=== PATIENT | male | born 1935 | race Caucasian/White ===

== ENCOUNTER 2016-07-20 17:50 | Inpatient (IN) | payer MEDICARE, BC ==
[2016-07-20] MEDS ORDERED: LEVOFLOXACIN 750MG-D5W PMX 750 MG in DEXTROSE/WATER 1 150ML.BAG IVPB STA (18:27)
[2016-07-20] MEDS ORDERED: MORPHINE SULFATE 4 MG/ML SYRINGE IV STA (18:30)
--- NOTE | 2016-07-20 19:22 | ED ---
General Adult HPI - General Chief complaint: Extremity Injury, Upper Stated complaint: wrist pain Time Seen by Provider: 07/20/16 18:01 Source: patient, EMS, RN notes reviewed, old records reviewed (Outside film reports reviewed) Mode of arrival: EMS - History of Present Illness Initial comments: This patient is an 81-year-old man who comes to the emergency department after he received a phone call regarding some home x-rays that he had yesterday. The patient did have a fall on Saturday. He states that he had tripped and fallen. He does not have good balance and he does walk with a walker. The patient denies any loss of consciousness or syncope. Following the fall he was having pains to the right wrist area. He denied any other injury. He was seen by the visiting physician on Saturday and had x-rays of the right forearm and the chest which showed right wrist fracture and also probable pneumonia. The patient does acknowledge having a cough. Patient denies chest pain, dyspnea, or other symptoms. -: days(s) Location: right, upper extremity Quality: aching Consistency: constant Improves with: none Worsens with: none Associated Symptoms: cough - Related Data Home Medications Medication Instructions Recorded Confirmed Atorvastatin [Lipitor] 10 mg PO HS 12/29/15 07/20/16 Metoprolol Tartrate [Lopressor] 50 mg PO DAILY 12/29/15 07/20/16 aMILoride-HCTZ 5-50 mg [Moduretic 1 tab PO DAILY 12/29/15 07/20/16 5-50] Ibuprofen [Motrin] 200 - 400 mg PO Q6HR PRN 07/20/16 07/20/16 Oxybutynin Chloride [Ditropan] 5 mg PO BID 07/20/16 07/20/16 Vitamin B Complex 1 cap PO DAILY 07/20/16 07/20/16 Allergies Allergy/AdvReac Type Severity Reaction Status Date / Time No Known Allergies Allergy Verified 07/20/16 18:21 Review of Systems ROS Statement: Those systems with pertinent positive or pertinent negative responses have been documented in the HPI. ROS Other: All systems not noted in ROS Statement are negative. Constitutional: Reports: weakness (Chronic generalized weakness). Denies: fever , chills Respiratory: Reports: cough. Denies: dyspnea Cardiovascular: Denies: chest pain, palpitations, orthopnea, edema, syncope Gastrointestinal: Denies: abdominal pain, vomiting, diarrhea Genitourinary: Denies: dysuria Musculoskeletal: Reports: joint swelling, arthralgia, other (Right wrist pain). Denies: back pain Skin: Denies: rash Neurological: Denies: headache, weakness, numbness Past Medical History Past Medical History: Hyperlipidemia, Hypertension, Osteoarthritis (OA) Additional Past Medical History / Comment(s): bladder problems History of Any Multi-Drug Resistant Organisms: None Reported Past Surgical History: Hernia Repair, Joint Replacement Additional Past Surgical History / Comment(s): colonoscopy/polypectomy(benign), lt inguinal hernia repair, umb hernia repair, rt hip replamcent, lt rotatorr cuff Past Anesthesia/Blood Transfusion Reactions: No Reported Reaction Past Psychological History: No Psychological Hx Reported Smoking Status: Never smoker Past Alcohol Use History: None Reported Past Drug Use History: None Reported - Past Family History Father Family Medical History: Unable to Obtain Mother Family Medical History: Unable to Obtain General Exam General appearance: alert, in no apparent distress Head exam: Present: normocephalic, other (Left forehead abrasion) Eye exam: Present: normal appearance. Absent: scleral icterus, conjunctival injection Neck exam: Present: normal inspection, full ROM. Absent: tenderness Respiratory exam: Present: normal lung sounds bilaterally, rales. Absent: respiratory distress, wheezes, rhonchi Cardiovascular Exam: Present: regular rate, normal rhythm, normal heart sounds. Absent: systolic murmur, diastolic murmur, rubs, gallop GI/Abdominal exam: Present: soft. Absent: tenderness, guarding, rebound, mass Extremities exam: Present: normal inspection, tenderness (Right wrist), normal capillary refill, pedal edema. Absent: calf tenderness Back exam: Absent: vertebral tenderness Neurological exam: Present: alert Skin exam: Present: warm, dry, intact, normal color, abrasion. Absent: rash Course Vital Signs 07/20/16 07/20/16 17:58 21:59 Temperature 97.4 F L 97.9 F Pulse Rate 82 82 Respiratory 18 18 Rate Blood Pressure 134/85 152/87 O2 Sat by Pulse 93 L 93 L Oximetry Medical Decision Making - Medical Decision Making Reviewed the patient's home x-rays. IV started for labs and for antibiotic therapy. The patient's right wrist was then splinted. I discussed the case with Dr. Lan, who is covering for Dr. Rosendo moreno. Patient be admitted to have overnight antibiotic therapy and also to have orthopedic consult the morning. The patient's subsequent he did go for chest x-ray which shows just the most minimal of infiltrate versus atelectasis. Patient stable for medical floor. - Lab Data Result diagrams: 07/20/16 20:11 07/20/16 20:11 Lab Results 07/20/16 07/20/16 07/20/16 Range/Units 20:11 20:11 20:11 WBC 10.7 H (3.8-10.6) k/uL RBC 4.98 (4.30-5.90) m/uL Hgb 15.2 (13.0-17.5) gm/dL Hct 45.5 (39.0-53.0) % MCV 91.4 (80.0-100.0) fL MCH 30.6 (25.0-35.0) pg MCHC 33.5 (31.0-37.0) g/dL RDW 14.5 (11.5-15.5) % Plt Count 323 (150-450) k/uL Neutrophils % 74 % Lymphocytes % 17 % Monocytes % 6 % Eosinophils % 1 % Basophils % 0 % Neutrophils # 7.9 H (1.3-7.7) k/uL Lymphocytes # 1.8 (1.0-4.8) k/uL Monocytes # 0.6 (0-1.0) k/uL Eosinophils # 0.1 (0-0.7) k/uL Basophils # 0.0 (0-0.2) k/uL Sodium 140 (137-145) mmol/L Potassium 3.3 L (3.5-5.1) mmol/L Chloride 99 (98-107) mmol/L Carbon Dioxide 29 (22-30) mmol/L Anion Gap 12 mmol/L BUN 29 H (9-20) mg/dL Creatinine 0.90 (0.66-1.25) mg/dL Est GFR (MDRD) Af Amer >60 (>60 ml/min/1.73 sqM) Est GFR (MDRD) Non-Af >60 (>60 ml/min/1.73 sqM) Glucose 103 H (74-99) mg/dL Plasma Lactic Acid Francisco 1.4 (0.7-2.0) mmol/L Calcium 9.4 (8.4-10.2) mg/dL Disposition Clinical Impression: Pneumonia, Distal radius fracture, right Disposition: ADMITTED IP TO THIS HOSP Condition: Fair
--- NOTE | 2016-07-20 20:15 | XR ---
EXAMINATION TYPE: XR forearm RT DATE OF EXAM: 07/20/2016 8:06 PM COMPARISON: NONE HISTORY: Fall. Forearm pain TECHNIQUE: 2 views FINDINGS: There is subcutaneous edema around the forearm. There is a 5 mm nondisplaced chip fracture of the radial styloid process. The elbow joint appears intact. IMPRESSION: Soft tissue swelling. Nondisplaced radial styloid process tip fracture.
[2016-07-20 20:26] LABS: Basophils % (A) 0 %; CH 31.1; CHCM 34.2; Eosinophils # (A) 0.1 k/uL (0-0.7); Eosinophils % (A) 1 %; HCT 45.5 % (39.0-53.0); HDW 2.69; HGB 15.2 gm/dL (13.0-17.5); Luc # (Auto) 0.25; Luc % (Auto) 2; Lymphocytes # (A) 1.8 k/uL (1.0-4.8); Lymphocytes % (A) 17 %; MCH 30.6 pg (25.0-35.0); MCHC 33.5 g/dL (31.0-37.0); MCV 91.4 fL (80.0-100.0); Monocytes # (A) 0.6 k/uL (0-1.0); Monocytes % (A) 6 %; Neutrophils # (A) 7.9 k/uL (1.3-7.7); Neutrophils % (A) 74 %; RBC 4.98 m/uL (4.30-5.90); RDW 14.5 % (11.5-15.5); WBC 10.7 k/uL (3.8-10.6); WBC (Perox) 11.01
[2016-07-20 20:40] LABS: Anion Gap 12 mmol/L; Blood Urea Nitrogen 29 mg/dL (9-20); Calcium 9.4 mg/dL (8.4-10.2); Carbon Dioxide 29 mmol/L (22-30); Chloride 99 mmol/L (98-107); Glucose 103 mg/dL (74-99); Non-African American GFR(MDRD) >60 (>60 ml/min/1.73 sqM); Potassium 3.3 mmol/L (3.5-5.1); Sodium 140 mmol/L (137-145)
[2016-07-20] MEDS ORDERED: POTASSIUM CHLORIDE ER 20 MEQ TAB.ER PO STA (21:01)
[2016-07-20] MEDS ORDERED: PNEUMONIA PROTOCOL UTILIZED 1 EACH MISC PO PRN (21:02)
--- NOTE | 2016-07-20 21:19 | XR ---
EXAMINATION TYPE: XR chest 2V DATE OF EXAM: 07/20/2016 9:05 PM COMPARISON: 01/01/2016 HISTORY: Fall on right forearm TECHNIQUE: Frontal and lateral views of the chest are obtained. FINDINGS: There is no heart failure nor confluent pneumonic infiltrate. There is mild linear density at the lung bases. There are no hilar masses. Thoracic aorta is atheromatous. Bony thorax is intact. IMPRESSION: Mild subsegmental atelectasis at the lung bases. There is significant improved inspirati on compared to old exam.
[2016-07-20 22:37] VITALS: BMI 28.7
[2016-07-21] MEDS: B COMPLEX-VIT C-VIT E-ZINC 1 EACH TAB PO SCH (08:49)
[2016-07-21] MEDS: aMILoride-HCTZ 5-50 mg 1 EACH TAB PO SCH (08:49)
[2016-07-21] MEDS: OXYBUTYNIN CHLORIDE 5 MG TAB PO SCH ×2 (08:50→20:12)
[2016-07-21] MEDS: METOPROLOL TARTRATE 50 MG TAB PO SCH (08:50)
[2016-07-21] MEDS: IBUPROFEN 200 MG TAB PO PRN (09:20)
--- NOTE | 2016-07-21 10:59 | P.CNOR ---
History of Present Illness - [facility] Consult date: 07/21/16 Consult reason: fracture History of present illness: This is an 81-year-old gentleman who presented to the emergency department after sustaining a fall at home. The patient apparently had a fall on Saturday. Patient had right wrist pain at that time. He apparently had x-rays at home by visiting physician. He was notified that he had probable pneumonia and right wrist fracture and was instructed to present to the emergency department. We are consulted in regards to his right wrist. The patient is seen and evaluated at bedside today. He complains of pain at the right wrist. He otherwise denies any other musculoskeletal complaints. He denies any numbness or tingling. Currently denies any shortness of breath or chest pain. He denies any lightheadedness, nausea or vomiting. He states that he does typically walks with a walker at home. Review of Systems See HPI Past Medical History Past Medical History: Hyperlipidemia, Hypertension, Osteoarthritis (OA) Additional Past Medical History / Comment(s): bladder problems History of Any Multi-Drug Resistant Organisms: None Reported Past Surgical History: Hernia Repair, Joint Replacement Additional Past Surgical History / Comment(s): colonoscopy/polypectomy(benign), lt inguinal hernia repair, umb hernia repair, rt hip replamcent, lt rotatorr cuff Past Anesthesia/Blood Transfusion Reactions: No Reported Reaction Past Psychological History: No Psychological Hx Reported Smoking Status: Never smoker Past Alcohol Use History: None Reported Past Drug Use History: None Reported - Past Family History Father Family Medical History: Unable to Obtain Mother Family Medical History: Unable to Obtain Medications and Allergies Home Medications Medication Instructions Recorded Confirmed Type Atorvastatin [Lipitor] 10 mg PO HS 12/29/15 07/20/16 History Metoprolol Tartrate [Lopressor] 50 mg PO DAILY 12/29/15 07/20/16 History aMILoride-HCTZ 5-50 mg [Moduretic 1 tab PO DAILY 12/29/15 07/20/16 History 5-50] Ibuprofen [Motrin] 200 - 400 mg PO Q6HR PRN 07/20/16 07/20/16 History Oxybutynin Chloride [Ditropan] 5 mg PO BID 07/20/16 07/20/16 History Vitamin B Complex 1 cap PO DAILY 07/20/16 07/20/16 History Allergies Allergy/AdvReac Type Severity Reaction Status Date / Time No Known Allergies Allergy Verified 07/20/16 18:21 Physical Examination Patient does not appear in acute distress. He seen seated in bed. He is alert and answers questions appropriately. Head normal cephalic atraumatic Neck is supple. Breathing appears nonlabored He moves his left upper extremity freely without any difficulty or pain. Upon inspection of his right upper extremity there is a short arm splint intact. His fingers are free. He denies pain with motion at her shoulder and elbow. Denies pain to palpation about the elbow or forearm. He has pain to palpation at the distal radius area he is able to move all 5 fingers without difficulty or pain. He is able to make a fist. Sensation and circulatory status is intact. Secondary Exam of his lower extremities is unremarkable. He denies any hip pain with internal/external rotation. No pain with passive logroll bilaterally. Calves are soft and nontender. He denies any pain of his long bones and joints of his lower extremities today. Results X-rays performed of the patient's right forearm show nondisplaced fracture at the radial styloid process. No additional fractures were noted. - Labs Result Diagrams: 07/20/16 20:11 07/20/16 20:11 Assessment and Plan (1) Fall Status: Acute (2) Radial styloid fracture Status: Acute Plan: I reviewed the clinical and x-ray findings with the patient at bedside. Orthopedics recommends closed treatment with immobilization in a cast or splint. Patient is currently in a short arm splint that was applied by the emergency department. Patient would prefer removable cockup wrist splint. This was ordered today. Discussed this with case management as well. The patient will likely require a platform walker secondary to his fracture. Anticipate approximately 4-6 weeks in the brace. If we cannot obtain a brace today we'll replace the splint. He will follow-up in our office in 10-14 days for reevaluation x-ray.
--- NOTE | 2016-07-21 11:40 | HP ---
DATE OF ADMISSION: An 81-year-old gentleman admitted with a fracture of the right wrist, tripped and fell. Patient was evaluated by orthopedic services. The patient has a stabilizing cast to the wrist area. Patient is cleared to be discharged from orthopedic perspective. Patient is admitted to medicine service as it was thought in ER that patient has pneumonia and patient was started on levofloxacin, although patient denied any cough, runny nose, sputum production. Patient does not have any leukocytosis. No fever. Chest x-ray showed atelectasis beyond that there is no evidence of pneumonia. I will discontinue the antibiotics. Actually discharge the patient, but unfortunately we are unable to send the patient home as patient is quite weak. Physical therapy evaluated the patient and they are recommending subacute rehabilitation. So the patient may need to stay here until Saturday for subacute rehabilitation placement. REVIEW OF SYSTEMS: CONSTITUTIONAL: No fever, no malaise, no fatigue. HEENT: No recent visual problems or hearing problems. Denied any sore throat. CARDIOVASCULAR: No chest pain, orthopnea, PND, no palpitations, no syncope. PULMONARY: No shortness of breath, no cough, no hemoptysis. GASTROINTESTINAL: No diarrhea, no nausea, no vomiting, no abdominal pain. Normoactive bowel sounds. NEUROLOGICAL: No headaches, no weakness, no numbness. HEMATOLOGICAL: Denies any bleeding or petechiae. GENITOURINARY: Denies any burning micturition, frequency, or urgency. MUSCULOSKELETAL/RHEUMATOLOGICAL: As described in HPI. ENDOCRINE: Denies any polyuria or polydipsia. The rest of the 14 point review of systems is negative. Home medications include: 1. Atorvastatin. 2. Metoprolol. 3. Amiloride hydrochlorothiazide. 4. Ibuprofen. 5. Oxybutynin. 6. Vitamin B. ALLERGIES: No known drug allergies. PAST MEDICAL HISTORY: Hyperlipidemia, hypertension, osteoarthritis, hernia repair in the past. SOCIAL HISTORY: Denied any smoking, alcohol abuse or any drug abuse. Family history was not obtained and irrelevant at this point of time considering his age. PHYSICAL EXAMINATION: Temperature 97.4, pulse of 93, respiratory rate of 16, blood pressure is 146/75. saturating at 91% on room air. GENERAL: The patient is alert and oriented x3, not in any acute distress. Well developed, well nourished. HEENT: Pupils are round and equally reacting to light. EOMI. No scleral icterus. No conjunctival pallor. Normocephalic, atraumatic. No pharyngeal erythema. No thyromegaly. CARDIOVASCULAR: S1 and S2 present. No murmurs, rubs, or gallops. PULMONARY: Chest is clear to auscultation, no wheezing or crackles. ABDOMEN: Soft, nontender, nondistended, normoactive bowel sounds. No palpable organomegaly. MUSCULOSKELETAL: No joint swelling or deformity. EXTREMITIES: No cyanosis, clubbing, or pedal edema. NEUROLOGICAL: Gross neurological examination did not reveal any focal deficits. SKIN: No rashes. RIGHT FOREARM: Patient has a stabilizing cast in place. LABORATORY DATA: Nondisplaced radial styloid process tip fracture on the x-ray and chest x-ray showed some atelectasis. ASSESSMENT AND PLAN: 1. Right styloid fracture, management as per primary orthopedic services. 2. Atelectasis without any pneumonia. Patient will not need any antibiotics. Antibiotics will discontinued. 3. Hypertension. 4. Hyperlipidemia. 5. Osteoarthritis. For above-mentioned chronic medical problems, I will go ahead and continue his home medications. Patient will need DVT and GI prophylaxis. Levofloxacin will be discontinued. Generalized deconditioning for which patient will need placement in subacute rehab.
[2016-07-21] MEDS: ATORVASTATIN 10 MG TAB PO SCH (20:12)
[2016-07-21] MEDS ORDERED: LEVOFLOXACIN 750MG-D5W PMX 750 MG in DEXTROSE/WATER 1 150ML.BAG IVPB SCH (21:04)
[2016-07-22] MEDS: B COMPLEX-VIT C-VIT E-ZINC 1 EACH TAB PO SCH (08:31)
[2016-07-22] MEDS: aMILoride-HCTZ 5-50 mg 1 EACH TAB PO SCH (08:31)
[2016-07-22] MEDS: FAMOTIDINE 20 MG TAB PO SCH (08:31)
[2016-07-22] MEDS: METOPROLOL TARTRATE 50 MG TAB PO SCH (08:32)
[2016-07-22] MEDS: OXYBUTYNIN CHLORIDE 5 MG TAB PO SCH ×2 (08:32→20:11)
[2016-07-22] MEDS: IBUPROFEN 200 MG TAB PO PRN (09:37)
[2016-07-22] MEDS ORDERED: POTASSIUM CHLORIDE ER 20 MEQ TAB.ER PO STA (10:55)
--- NOTE | 2016-07-22 13:35 | PN ---
An 81-year-old admitted with right wrist styloid process fracture and patient has a cast and patient will receive a splint. Patient is clinically doing well and patient has generalized deconditioning. Will need to go to rehab on Saturday. REVIEW OF SYSTEMS: CARDIOVASCULAR: No chest pain, no orthopnea, no PND, no palpitations. PULMONARY: Denied any shortness of breath. No cough or hemoptysis. GASTROINTESTINAL: No diarrhea, nausea or vomiting. No abdominal pain. Normoactive bowel sounds. NEUROLOGIC: No headaches, no weakness, no numbness. Medications were reviewed. PHYSICAL EXAMINATION: Temperature 97.1, pulse of 87, respiratory rate of 16, blood pressure is 144/78, saturating at 94% on room air. PHYSICAL EXAMINATION: GENERAL: The patient is alert and oriented x3, not in any acute distress. Well developed, well nourished. HEENT: Pupils are round and equally reacting to light. EOMI. No scleral icterus. No conjunctival pallor. Normocephalic, atraumatic. No pharyngeal erythema. No thyromegaly. CARDIOVASCULAR: S1 and S2 present. No murmurs, rubs, or gallops. PULMONARY: Chest is clear to auscultation, no wheezing or crackles. ABDOMEN: Soft, nontender, nondistended, normoactive bowel sounds. No palpable organomegaly. EXTREMITIES: No cyanosis, clubbing, or pedal edema. NEUROLOGICAL: Gross neurological examination did not reveal any focal deficits. SKIN: No rashes. MUSCULOSKELETAL: As mentioned above styloid process fracture. ASSESSMENT AND PLAN: 1. Right styloid process fracture. 2. Atelectasis without any pneumonia, will not need any antibiotics. 3. Hypertension. 4. Hyperlipidemia. 5. Osteoarthritis. 6. Obesity. PLAN: Continue with present medications, awaiting ( ) to subacute rehab. Patient will be followed by Dr. Nuno Robbins from tomorrow. Patient will be discharged to subacute rehabilitation. Patient is otherwise clinically doing well.
[2016-07-22] MEDS: ATORVASTATIN 10 MG TAB PO SCH (20:10)
[2016-07-23 07:48] VITALS: RESP 18
[2016-07-23] MEDS: OXYBUTYNIN CHLORIDE 5 MG TAB PO SCH (08:08)
[2016-07-23] MEDS: aMILoride-HCTZ 5-50 mg 1 EACH TAB PO SCH (08:08)
[2016-07-23] MEDS: B COMPLEX-VIT C-VIT E-ZINC 1 EACH TAB PO SCH (08:09)
[2016-07-23] MEDS: FAMOTIDINE 20 MG TAB PO SCH (08:09)
[2016-07-23] MEDS: METOPROLOL TARTRATE 50 MG TAB PO SCH (08:09)
[2016-07-23 09:12] LABS: Basophils % (A) 1 %; CH 31.4; CHCM 34.3; Eosinophils # (A) 0.1 k/uL (0-0.7); Eosinophils % (A) 1 %; HCT 44.5 % (39.0-53.0); HDW 2.76; HGB 14.5 gm/dL (13.0-17.5); Luc # (Auto) 0.07; Luc % (Auto) 1; Lymphocytes # (A) 1.7 k/uL (1.0-4.8); Lymphocytes % (A) 18 %; MCH 29.9 pg (25.0-35.0); MCHC 32.5 g/dL (31.0-37.0); MCV 91.9 fL (80.0-100.0); Mean Platelet Volume 7.4; Monocytes # (A) 0.5 k/uL (0-1.0); Monocytes % (A) 5 %; Neutrophils # (A) 6.7 k/uL (1.3-7.7); Neutrophils % (A) 74 %; RBC 4.85 m/uL (4.30-5.90); RDW 14.3 % (11.5-15.5); WBC (Perox) 8.49
[2016-07-23 09:38] LABS: Anion Gap 11 mmol/L; Blood Urea Nitrogen 19 mg/dL (9-20); Calcium 8.9 mg/dL (8.4-10.2); Carbon Dioxide 30 mmol/L (22-30); Chloride 99 mmol/L (98-107); Glucose 135 mg/dL (74-99); Non-African American GFR(MDRD) >60 (>60 ml/min/1.73 sqM); Sodium 140 mmol/L (137-145)
[2016-07-23 09:44] LABS: Potassium 2.7 mmol/L (3.5-5.1)
[2016-07-23] MEDS ORDERED: Potassium Replacement Protocol 1 EACH MISC MISCELLANE PRN (09:56)
[2016-07-23] MEDS: POTASSIUM CHLORIDE ER 20 MEQ TAB.ER PO SCH ×3 (11:29→14:05)
--- NOTE | 2016-07-23 14:14 | P.DS ---
Providers Date of admission: 07/20/16 21:05 Expected date of discharge: 07/23/16 Attending physician: Nuno Robbins Consults: Ryley Michaels Primary care physician: Nuno Robbins [facility] Course: Patient is an 81-year-old male, patient of Dr. Robbins in the outpatient setting, admitted with fracture to right wrist after he tripped and fell. Patient was evaluated by orthopedic service and a stabilizing cast was applied to the wrist area. It was thought that patient had pneumonia and patient was stated on Levaquin. Chest x-ray with evidence of atelectasis and no evidence of pneumonia. Antibiotics were discontinued. Patient was evaluated by physical therapy for medical debility and patient was recommended for subacute rehabilitation. Patient is stable for discharge from a orthopedic standpoint and a medical standpoint. Patient will be transferred later this afternoon to [facility] for subacute rehab. Discharge diagnoses: 1. Right styloid process fracture. 2. Atelectasis without pneumonia. 3. Hypertension. 4. Hyperlipidemia. 5. Osteoarthritis. 6. Obesity. 7. Medical debility. 8. Hypokalemia, being replaced. Patient will have his BMP rechecked at [facility] tomorrow. The above impression and plan have been discussed and directed by Dr. Robbins. Demi KNOWLES acting as scribe for Dr. Robbins. Pertinent Studies: Chest x-ray; right forearm x-ray Patient Condition at Discharge: Good Plan - Discharge Summary Discharge Medication List Atorvastatin [Lipitor] 10 mg PO HS 12/29/15 [History] Metoprolol Tartrate [Lopressor] 50 mg PO DAILY 12/29/15 [History] aMILoride-HCTZ 5-50 mg [Moduretic 5-50] 1 tab PO DAILY 12/29/15 [History] Ibuprofen [Motrin] 200 - 400 mg PO Q6HR PRN 07/20/16 [History] Oxybutynin Chloride [Ditropan] 5 mg PO BID 07/20/16 [History] Vitamin B Complex 1 cap PO DAILY 07/20/16 [History] Follow up Appointment(s)/Referral(s): Nuno Robbins DO [Primary Care Provider] - 3 Days Jose J Aden DO [Doctor of Osteopathic Medicine] - 2 Weeks Ambulatory/Diagnostic Orders: Basic Metabolic Panel [LAB.AMB] Time Frame: 07/24/16, Location: Determined By Patient Discharge Disposition: TRANSFER TO SNF/ECF
[2016-07-23 15:13] VITALS: BP 148/69; PULSE 92; TEMP 98.8
== END 2016-07-23 18:10 | DRG 563 ==
LOC: EC 17:50 → 5MS5E 21:05
PROVIDERS: ADMIT Family Medicine; ATTEND Family Medicine
DX: S52.511A Displaced fracture of right radial styloid process, initial encounter for closed fracture (principal); J98.11 Atelectasis; I10 Essential (primary) hypertension; E78.5 Hyperlipidemia, unspecified; E87.6 Hypokalemia; M19.90 Unspecified osteoarthritis, unspecified site; Z96.641 Presence of right artificial hip joint; W01.0XXA Fall on same level from slipping, tripping and stumbling without subsequent striking against object, initial encounter; Y92.009 Unspecified place in unspecified non-institutional (private) residence as the place of occurrence of the external cause
CPT/HCPCS: 36415; 71020; 80048; 83605; 83735; 84132; 85025; 87040; 96365; 96366; 96375; 99285

== ENCOUNTER 2019-04-11 22:44 | Inpatient (IN) | payer MEDICARE, BC ==
[2019-04-11] MEDS ORDERED: SODIUM CHLORIDE 0.9% 2,500 ML IV ONE (23:25)
[2019-04-11 23:27] LABS: Anisocytosis Slight; Basophils # (A) 0.1 k/uL (0-0.2); Basophils % (A) 0 %; Eosinophils # (A) 0.1 k/uL (0-0.7); Eosinophils % (A) 1 %; HCT 37.4 % (39.0-53.0); HGB 11.9 gm/dL (13.0-17.5); Lymphocytes # (A) 1.5 k/uL (1.0-4.8); Lymphocytes % (A) 12 %; MCH 25.9 pg (25.0-35.0); MCHC 31.9 g/dL (31.0-37.0); MCV 81.1 fL (80.0-100.0); Mean Platelet Volume 6.8; Monocytes # (A) 0.7 k/uL (0-1.0); Monocytes % (A) 6 %; Neutrophils % (A) 79 %; Platelet Count 341 k/uL (150-450); RBC 4.62 m/uL (4.30-5.90); RDW 16.2 % (11.5-15.5); WBC 12.7 k/uL (3.8-10.6)
--- NOTE | 2019-04-11 23:41 | XR ---
EXAMINATION TYPE: XR chest 1V portable DATE OF EXAM: 04/11/2019 COMPARISON: 07/20/2016. Chest pain FINDINGS: There is poor inspiration. There is some atelectasis at the lung bases. There is no heart failure. Jeremi ny thorax is intact. There is chest leads. IMPRESSION: There is some atelectasis at the lung bases increased compared to last exam with decreased inspiratio n. No heart failure seen.
[2019-04-11 23:42] LABS: ALT 25 U/L (21-72); AST 42 U/L (17-59); African American GFR (CKD) >90 (>60 ml/min/1.73 sqM); Albumin 3.5 g/dL (3.5-5.0); Alkaline Phosphatase 116 U/L (38-126); Anion Gap 8 mmol/L; Blood Urea Nitrogen 28 mg/dL (9-20); Calcium 8.9 mg/dL (8.4-10.2); Carbon Dioxide 27 mmol/L (22-30); Chloride 103 mmol/L (98-107); Glucose 112 mg/dL (74-99); Magnesium 2.1 mg/dL (1.6-2.3); Sodium 138 mmol/L (137-145); Total Bilirubin 0.7 mg/dL (0.2-1.3); Total Protein 7.2 g/dL (6.3-8.2)
[2019-04-11] MEDS ORDERED: MORPHINE SULFATE 4 MG/ML SYRINGE IV STA (23:44)
[2019-04-11] MEDS ORDERED: ACETAMINOPHEN TAB 325 MG TAB PO STA (23:45)
[2019-04-11 23:48] LABS: Potassium 4.5 mmol/L (3.5-5.1)
[2019-04-11 23:57] LABS: Appearance,Urine Turbid (Clear); Bacteria,Urine Moderate /hpf; Bilirubin,Urine Negative (Negative); Blood,Urine Moderate (Negative); Color,Urine Light Red; Glucose,Urine (UA) Negative (Negative); Ketones,Urine Negative (Negative); Leukocyte Esterase,Urine Large (Negative); Mucus,Urine Rare /hpf; Nitrite,Urine Negative (Negative); Protein,Urine 3+ (Negative); RBC,Urine >182 /hpf (0-5); Specific Gravity,Urine 1.024 (1.001-1.035); Urobilinogen,Urine <2.0 mg/dL (<2.0); WBC,Urine 136 /hpf (0-5)
[2019-04-12 00:03] LABS: Partial Thromboplastin Time 25.5 sec (22.0-30.0); Prothrombin Time 10.3 sec (9.0-12.0)
[2019-04-12] MEDS ORDERED: HEPARIN SODIUM,PORCINE 5,000 UNIT/ML 1 ML VIAL SQ SCH (00:15)
--- NOTE | 2019-04-12 00:17 | ED ---
Weakness HPI - General Chief complaint: Weakness Stated complaint: poss sepsis Time Seen by Provider: 04/11/19 22:52 Source: EMS Mode of arrival: EMS Limitations: altered mental status (There is underlying dementia versus delirium.) - History of Present Illness Initial comments: This patient is an 84-year-old man [facility] to be evaluated for generalized fatigue, weakness, and fever. Patient on arrival denies complaints. He states that his breathing is doing okay. He is denying pains. MD Complaint: generalized weakness Onset/Timin -: days(s) Location: generalized Associated Symptoms: confusion, fever/chills - Related Data Home Medications Medication Instructions Recorded Confirmed Atorvastatin [Lipitor] 10 mg PO Q48H 12/29/15 04/11/19 Metoprolol Tartrate [Lopressor] 50 mg PO DAILY@0800 12/29/15 04/11/19 aMILoride-HCTZ 5-50 mg [Moduretic 1 tab PO DAILY@0800 12/29/15 04/11/19 5-50] Vitamin B Complex 1 cap PO DAILY@1700 07/20/16 04/11/19 Acetaminophen [Tylenol] 650 mg PO Q4H PRN 04/11/19 04/11/19 Aspirin 81 mg PO DAILY@1700 04/11/19 04/11/19 Bisacodyl [Dulcolax] 10 mg RECTAL DAILY PRN 04/11/19 04/11/19 Dextran 70/Hypromellose [Genteal 2 drops BOTH EYES Q8H PRN 04/11/19 04/11/19 Tears 0.1%-0.3% Drop] Ergocalciferol (Vitamin D2) 50,000 unit PO Q14D@1700 04/11/19 04/11/19 [Drisdol] Hydrocortisone Cream 1 applic TOPICAL Q12H PRN 04/11/19 04/11/19 [Hydrocortisone 2.5% Cream] Magnesium Hydroxide [Milk of 7,200 mg PO DAILY PRN 04/11/19 04/11/19 Magnesia Concentrate] Melatonin 3 mg PO HS@2100 04/11/19 04/11/19 Na Phos,M-B/Na Phos,Di-Ba [Fleet 133 ml RECTAL ONCE PRN 04/11/19 04/11/19 Adult] Polyethylene Glycol 3350 [Miralax] 17 gm PO DAILY@0800 04/11/19 04/11/19 Selsun Bluedry Scalp Shampoo 1 applic TOPICAL MOTH 04/11/19 04/11/19 Allergies Allergy/AdvReac Type Severity Reaction Status Date / Time No Known Allergies Allergy Verified 04/11/19 22:55 Review of Systems ROS Statement: Those systems with pertinent positive or pertinent negative responses have been documented in the HPI. ROS Other: All systems not noted in ROS Statement are negative. Limitations: ROS unobtainable due to patients medical condition (Dementia versus delirium) Constitutional: Reports: as per HPI, fever Respiratory: Denies: dyspnea Cardiovascular: Denies: chest pain Gastrointestinal: Denies: abdominal pain, vomiting Musculoskeletal: Denies: back pain Neurological: Denies: headache Past Medical History Past Medical History: Hyperlipidemia, Hypertension, Osteoarthritis (OA) Additional Past Medical History / Comment(s): bladder problems History of Any Multi-Drug Resistant Organisms: None Reported Past Surgical History: Hernia Repair, Joint Replacement Additional Past Surgical History / Comment(s): colonoscopy/polypectomy(benign),lt inguinal hernia repair, umb hernia repair, rt hip replamcent, lt rotatorr cuff Past Anesthesia/Blood Transfusion Reactions: No Reported Reaction Past Psychological History: No Psychological Hx Reported Smoking Status: Never smoker Past Alcohol Use History: None Reported Past Drug Use History: None Reported - Past Family History Father Family Medical History: Unable to Obtain Mother Family Medical History: Unable to Obtain General Exam General appearance: alert, in no apparent distress, obese Head exam: Present: atraumatic, normocephalic Eye exam: Present: normal appearance ENT exam: Present: mucous membranes dry Respiratory exam: Present: respiratory distress (Mild tachypnea), rales (Bilater al bases). Absent: wheezes, rhonchi, stridor Cardiovascular Exam: Present: regular rate, normal rhythm, normal heart sounds. Absent: systolic murmur, diastolic murmur, rubs, gallop GI/Abdominal exam: Present: soft. Absent: distended, tenderness, guarding, rebound, rigid Extremities exam: Present: normal inspection, normal capillary refill. Absent: pedal edema, calf tenderness Neurological exam: Present: alert Skin exam: Present: warm, dry, normal color, other (Sacral decubitus ulcer present). Absent: rash Course Vital Signs 1104/11/19 04/11/19 22:47 22:57 23:41 Temperature 100.8 F H 100.0 F H Pulse Rate 92 98 Respiratory 28 H 24 24 Rate Blood Pressure 152/90 153/85 O2 Sat by Pulse 96 95 Oximetry 04/12/19 00:44 Temperature 97.2 F L Pulse Rate 92 Respiratory 24 Rate Blood Pressure 142/84 O2 Sat by Pulse 94 L Oximetry EKG Findings - EKG Comments: EKG Findings:: Atrial fibrillation with a rate proximally 117 bpm - Blocks, [place], Hypertrophy, ST Abn: AV and intraventricular conduction: right bundle branch block (fixed/intermittent, complete/incomplete), left anterior fascicular block Medical Decision Making - Lab Data Result diagrams: 04/13/19 04:17 04/12/19 06:55 Lab Results 04/11/19 04/11/19 04/11/19 Range/Units 23:12 23:12 23:12 WBC 12.7 H (3.8-10.6) k/uL RBC 4.62 (4.30-5.90) m/uL Hgb 11.9 L (13.0-17.5) gm/dL Hct 37.4 L (39.0-53.0) % MCV 81.1 (80.0-100.0) fL MCH 25.9 (25.0-35.0) pg MCHC 31.9 (31.0-37.0) g/dL RDW 16.2 H (11.5-15.5) % Plt Count 341 (150-450) k/uL Neutrophils % 79 % Lymphocytes % 12 % Monocytes % 6 % Eosinophils % 1 % Basophils % 0 % Neutrophils # 10.0 H (1.3-7.7) k/uL Lymphocytes # 1.5 (1.0-4.8) k/uL Monocytes # 0.7 (0-1.0) k/uL Eosinophils # 0.1 (0-0.7) k/uL Basophils # 0.1 (0-0.2) k/uL Anisocytosis Slight PT (9.0-12.0) sec INR (<1.2) APTT (22.0-30.0) sec Sodium 138 (137-145) mmol/L Potassium 4.5 (3.5-5.1) mmol/L Chloride 103 (98-107) mmol/L Carbon Dioxide 27 (22-30) mmol/L Anion Gap 8 mmol/L BUN 28 H (9-20) mg/dL Creatinine 0.80 (0.66-1.25) mg/dL Est GFR (CKD-EPI)AfAm >90 (>60 ml/min/1.73 sqM) Est GFR (CKD-EPI)NonAf 83 (>60 ml/min/1.73 sqM) Glucose 112 H (74-99) mg/dL Plasma Lactic Acid Francisco 0.9 (0.7-2.0) mmol/L Calcium 8.9 (8.4-10.2) mg/dL Magnesium 2.1 (1.6-2.3) mg/dL Total Bilirubin 0.7 (0.2-1.3) mg/dL AST 42 (17-59) U/L ALT 25 (21-72) U/L Alkaline Phosphatase 116 (38-126) U/L Troponin I (0.000-0.034) ng/mL Total Protein 7.2 (6.3-8.2) g/dL Albumin 3.5 (3.5-5.0) g/dL Urine Color Urine Appearance (Clear) Urine pH (5.0-8.0) Ur Specific [place] (1.001-1.035) Urine Protein (Negative) Urine Glucose (UA) (Negative) Urine Ketones (Negative) Urine Blood (Negative) Urine Nitrite (Negative) Urine Bilirubin (Negative) Urine Urobilinogen (<2.0) mg/dL Ur Leukocyte Esterase (Negative) Urine RBC (0-5) /hpf Urine WBC (0-5) /hpf Urine WBC Clumps (None) /hpf Urine Bacteria (None) /hpf Urine Mucus (None) /hpf 04/11/19 04/11/19 04/11/19 Range/Units 23:12 23:12 23:13 WBC (3.8-10.6) k/uL RBC (4.30-5.90) m/uL Hgb (13.0-17.5) gm/dL Hct (39.0-53.0) % MCV (80.0-100.0) fL MCH (25.0-35.0) pg MCHC (31.0-37.0) g/dL RDW (11.5-15.5) % Plt Count (150-450) k/uL Neutrophils % % Lymphocytes % % Monocytes % % Eosinophils % % Basophils % % Neutrophils # (1.3-7.7) k/uL Lymphocytes # (1.0-4.8) k/uL Monocytes # (0-1.0) k/uL Eosinophils # (0-0.7) k/uL Basophils # (0-0.2) k/uL Anisocytosis PT 10.3 (9.0-12.0) sec INR 1.0 (<1.2) APTT 25.5 (22.0-30.0) sec Sodium (137-145) mmol/L Potassium (3.5-5.1) mmol/L Chloride (98-107) mmol/L Carbon Dioxide (22-30) mmol/L Anion Gap mmol/L BUN (9-20) mg/dL Creatinine (0.66-1.25) mg/dL Est GFR (CKD-EPI)AfAm (>60 ml/min/1.73 sqM) Est GFR (CKD-EPI)NonAf (>60 ml/min/1.73 sqM) Glucose (74-99) mg/dL Plasma Lactic Acid Francisco (0.7-2.0) mmol/L Calcium (8.4-10.2) mg/dL Magnesium (1.6-2.3) mg/dL Total Bilirubin (0.2-1.3) mg/dL AST (17-59) U/L ALT (21-72) U/L Alkaline Phosphatase (38-126) U/L Troponin I <0.012 (0.000-0.034) ng/mL Total Protein (6.3-8.2) g/dL Albumin (3.5-5.0) g/dL Urine Color Light Red Urine Appearance Turbid (Clear) Urine pH 7.0 (5.0-8.0) Ur Specific [place] 1.024 (1.001-1.035) Urine Protein 3+ H (Negative) Urine Glucose (UA) Negative (Negative) Urine Ketones Negative (Negative) Urine Blood Moderate H (Negative) Urine Nitrite Negative (Negative) Urine Bilirubin Negative (Negative) Urine Urobilinogen <2.0 (<2.0) mg/dL Ur Leukocyte Esterase Large H (Negative) Urine RBC >182 H (0-5) /hpf Urine WBC 136 H (0-5) /hpf Urine WBC Clumps Rare H (None) /hpf Urine Bacteria Moderate H (None) /hpf Urine Mucus Rare H (None) /hpf Critical Care Time Critical Care Time: Yes (30 minutes) Disposition Clinical Impression: Urinary tract infection, Sepsis, Atrial fibrillation with rapid ventricular response Disposition: ADMITTED IP TO THIS HOSP Condition: Poor Is patient prescribed a controlled substance at d/c from ED?: No
[2019-04-12] MEDS ORDERED: ACETAMINOPHEN TAB 325 MG TAB PO PRN (00:19)
[2019-04-12] MEDS ORDERED: MORPHINE SULFATE 4 MG/ML SYRINGE IV STA (00:23)
[2019-04-12] MEDS ORDERED: NA PHOS,M-B/NA PHOS,DI-BA 133 ML ENEMA RECTAL PRN (00:30)
[2019-04-12] MEDS: SODIUM CHLORIDE 0.9% 1,000 ML IV SCH ×3 (00:40→21:28)
[2019-04-12] MEDS ORDERED: HEPARIN SODIUM,PORCINE 5,000 UNIT/ML 1 ML VIAL IV ONE (00:58)
[2019-04-12] MEDS ORDERED: HEPARIN SODIUM,PORCINE 5,000 UNIT/ML 1 ML VIAL IV PRN (00:58)
[2019-04-12] MEDS: HEPARIN SOD,PORK IN 0.45% NACL 25,000 UNIT in 0.45% NACL 1 250ML.BAG IV SCH ×2 (01:05→21:29)
[2019-04-12] MEDS ORDERED: DILTIAZEM DRIP BOLUS FROM BAG 1 MG SOLN IV ONE (01:13)
[2019-04-12] MEDS ORDERED: DILTIAZEM 125 MG in SODIUM CHLORIDE 0.9% 100 ML IV SCH (01:45)
[2019-04-12 02:00] LABS: Glucose,Whole Blood 119 mg/dL (75-99)
[2019-04-12 02:18] VITALS: BMI 36.8
[2019-04-12 07:16] LABS: Basophils % (A) 0 %; Eosinophils # (A) 0.1 k/uL (0-0.7); Eosinophils % (A) 1 %; HCT 33.9 % (39.0-53.0); HGB 10.5 gm/dL (13.0-17.5); Hypochromasia Marked; Lymphocytes # (A) 1.8 k/uL (1.0-4.8); Lymphocytes % (A) 18 %; MCH 26.2 pg (25.0-35.0); MCV 84.6 fL (80.0-100.0); Mean Platelet Volume 6.5; Monocytes # (A) 0.6 k/uL (0-1.0); Monocytes % (A) 6 %; Neutrophils # (A) 6.9 k/uL (1.3-7.7); Neutrophils % (A) 71 %; Platelet Count 282 k/uL (150-450); RDW 15.7 % (11.5-15.5); WBC 9.7 k/uL (3.8-10.6)
[2019-04-12 07:41] LABS: ALT 26 U/L (21-72); AST 23 U/L (17-59); African American GFR (CKD) >90 (>60 ml/min/1.73 sqM); Albumin 2.9 g/dL (3.5-5.0); Alkaline Phosphatase 96 U/L (38-126); Anion Gap 4 mmol/L; Blood Urea Nitrogen 26 mg/dL (9-20); Calcium 8.2 mg/dL (8.4-10.2); Carbon Dioxide 30 mmol/L (22-30); Chloride 107 mmol/L (98-107); Glucose 97 mg/dL (74-99); Potassium 3.9 mmol/L (3.5-5.1); Sodium 141 mmol/L (137-145); Total Bilirubin 0.3 mg/dL (0.2-1.3); Total Protein 5.9 g/dL (6.3-8.2)
--- NOTE | 2019-04-12 08:16 | CONS ---
CONSULTATION Mr. Torres is an 84-year-old gentleman admitted to the ICU with atrial fib and rapid ventricular rate. Apparently this gentleman was admitted with urosepsis and then went into atrial fib with a rapid ventricular rate and therefore he was brought into the ICU. He has received some IV fluids. He has significant advanced dementia, does not communicate very well. He does not appear to be in any distress. He has a diagnosis of hypertension and hyperlipidemia and underlying dementia. Atrial fibrillation is a new episode that happened. EKG revealed atrial fib with moderate ventricular rate. The patient is not very communicative, does not give me any meaningful history, but does not appear to be in any distress. He was sent over from a custodial because of generalized fatigue, lack of energy and upon arrival, a diagnosis of UTI was made. He has altered mentation and urinalysis suggests UTI. The patient's atrial fibrillation rate is much better. It seems to be a be in the low 60s. I will obtain an EKG. There was a lot of artifact. He may be in sinus rhythm. We will discontinue IV Cardizem drip for this patient. We will continue his oral heparin. We will continue IV heparin and tomorrow we can switch him to oral anticoagulants. We will obtain echo in the morning and EKG today. PAST MEDICAL HISTORY: 1. Hypertension. 2. Hyperlipidemia. 3. Osteoarthritis. 4. History of some sensitive bladder. 5. He also has been having some advanced dementia. 6. He has had hernia repair. 7. Joint replacement. 8. Inguinal hernia and umbilical hernia repair. 9. Right hip arthroplasty. ALLERGIES: None. MEDICATIONS: At home include vitamin supplements, hydrocortisone cream, he takes metoprolol tartrate 50 mg daily, Lipitor 110 mg daily and also he takes Amiloride diuretic at 550 1 tab daily. EKG on arrival revealed atrial fib, right bundle, moderate ventricular rate, a rate of about 120 beats per minute. PHYSICAL EXAMINATION: Blood pressure is 118/70, pulse rate is about 64 per minute and regular. HEENT unremarkable. Fundus was not examined by me. NECK: Supple. There is JVD of 1 cm. No carotid bruit. Heart exam reveals S1, S2. Regular rhythm. Short systolic murmur. Lungs reveal diminished air entry. Both bases. Abdomen is soft. Lower extremities reveal diminished pulses. Central nervous system assessment could not be performed, but patient moves all 4 extremities. IMPRESSION: 1. New onset paroxysmal atrial fibrillation, probably converted to sinus rhythm. We will obtain EKG. 2. Hypertension. 3. Urinary tract infection with possible sepsis. 4. Dementia. RECOMMENDATION: I am recommending that we discontinue Cardizem drip. Continue IV heparin. Obtain EKG today. Echo in the morning and based on clinical course I will make further recommendations. Thank you very much for the consult. MMODL / IJN: [id number] /
[2019-04-12] MEDS ORDERED: MAGNESIUM HYDROXIDE 2,400 MG/10 ML CUP PO PRN (09:00)
[2019-04-12] MEDS ORDERED: BISACODYL 10 MG SUPP RECTAL PRN (09:00)
[2019-04-12] MEDS: ATORVASTATIN 10 MG TAB PO SCH (09:10)
[2019-04-12] MEDS: ASPIRIN 81 MG PO SCH (09:10)
[2019-04-12] MEDS: FAMOTIDINE 20 MG/2 ML VIAL IV SCH ×2 (09:10→21:28)
[2019-04-12] MEDS: METOPROLOL TARTRATE 50 MG TAB PO SCH (09:10)
[2019-04-12] MEDS: aMILoride-HCTZ 5-50 mg 1 EACH TAB PO SCH (09:14)
[2019-04-12] MEDS: POLYETHYLENE GLYCOL 3350 17 GM POWD.PACK PO SCH (09:28)
--- NOTE | 2019-04-12 12:10 | P.HPIM ---
History of Present Illness H&P Date: 04/12/19 Chief Complaint: Altered mental status, weakness This is an 84-year-old gentleman who is a resident of an extended care facility. At the extended care facility patient was refusing his medications and has increased change of mental status including confusion. Patient was brought to the emergency room for evaluation due to generalized weakness, confusion, and fever. Patient has a history of dementia however the increased confusion and refusal to take medications or participating care is new to the patient. Patient has become easily agitated and unwilling to answer questions or be examined. Patient is not complaining of any pain or discomfort. Patient denies any urinary symptoms such as dysuria, material, frequency. Patient denies fever or chills. Upon arrival to the emergency room patient was found to be in atrial fibrillation with RVR this appears to be new for the patient may be correlated with urosepsis. Patient has significant past medical history of dementia, hyperlipidemia, hypertension, osteoarthritis. Patient is resident at [facility]. During examined changes patient became agitated and aggressive with examiner. Patient does not appear in any acute distress. Patient is not very communicative, does not give meaningful history. Chest x-ray shows some atelectasis at the lung bases increased compared to last exam with decreased inspiration. No heart failure seen. Upon arrival initial WBC 12.7 this morning 9.7, hemoglobin 10.5, potassium 3.9, BUN 26, creatinine 0.79, urinalysis positive for UTI. Patient afebrile at this time hemodynamically stable, heart rate 65 and appears regular, blood pressure 140/92 pulse ox 96% on room air. Urinary output is between 50 and 70 ML's per hour for underlying catheter. Review of Systems ROS unobtainable: due to mental status Past Medical History Past Medical History: Atrial Fibrillation, Dementia, Hyperlipidemia, Hypertension, Memory Impairment, Osteoarthritis (OA) Additional Past Medical History / Comment(s): bladder problems History of Any Multi-Drug Resistant Organisms: None Reported Past Surgical History: Hernia Repair, Joint Replacement Additional Past Surgical History / Comment(s): colonoscopy/polyp ectomy(benign),lt inguinal hernia repair, umb hernia repair, rt hip replamcent, lt rotatorr cuff Past Anesthesia/Blood Transfusion Reactions: No Reported Reaction Past Psychological History: No Psychological Hx Reported Smoking Status: Never smoker Past Alcohol Use History: None Reported Past Drug Use History: None Reported - Past Family History Father Family Medical History: Unable to Obtain Mother Family Medical History: Unable to Obtain Medications and Allergies Home Medications Medication Instructions Recorded Confirmed Type Atorvastatin [Lipitor] 10 mg PO Q48H 12/29/15 04/11/19 History Metoprolol Tartrate [Lopressor] 50 mg PO DAILY@0800 12/29/15 04/11/19 History aMILoride-HCTZ 5-50 mg [Moduretic 1 tab PO DAILY@0800 12/29/15 04/11/19 History 5-50] Vitamin B Complex 1 cap PO DAILY@1700 07/20/16 04/11/19 History Acetaminophen [Tylenol] 650 mg PO Q4H PRN 04/11/19 04/11/19 History Aspirin 81 mg PO DAILY@1700 04/11/19 04/11/19 History Bisacodyl [Dulcolax] 10 mg RECTAL DAILY PRN 04/11/19 04/11/19 History Dextran 70/Hypromellose [Genteal 2 drops BOTH EYES Q8H PRN 04/11/19 04/11/19 History Tears 0.1%-0.3% Drop] Ergocalciferol (Vitamin D2) 50,000 unit PO Q14D@1700 04/11/19 04/11/19 History [Drisdol] Hydrocortisone Cream 1 applic TOPICAL Q12H PRN 04/11/19 04/11/19 History [Hydrocortisone 2.5% Cream] Magnesium Hydroxide [Milk of 7,200 mg PO DAILY PRN 04/11/19 04/11/19 History Magnesia Concentrate] Melatonin 3 mg PO HS@2100 04/11/19 04/11/19 History Na Phos,M-B/Na Phos,Di-Ba [Fleet 133 ml RECTAL ONCE PRN 04/11/19 04/11/19 History Adult] Polyethylene Glycol 3350 [Miralax] 17 gm PO DAILY@0800 04/11/19 04/11/19 History Selsun Bluedry Scalp Shampoo 1 applic TOPICAL MOTH 04/11/19 04/11/19 History Allergies Allergy/AdvReac Type Severity Reaction Status Date / Time No Known Allergies Allergy Verified 04/11/19 22:55 Physical Exam Vitals: Vital Signs Temp Pulse Pulse Resp BP BP Pulse Ox 04/12/19 08:00 97.9 F 58 L 8 L 140/92 96 04/12/19 04:00 98.3 F 65 18 116/66 97 04/12/19 01:28 EST 98 F 78 20 127/66 95 04/12/19 00:44 97.2 F L 92 24 142/84 94 L 04/11/19 23:41 100.0 F H 98 24 153/85 95 04/11/19 22:57 24 04/11/19 22:47 100.8 F H 92 28 H 152/90 96 Intake and Output 04/11/19 04/12/19 04/12/19 23:59 06:59 14:59 Intake Total 80.882 Output Total Balance 80.882 Intake: IV Sodium Chloride 0.9% 1, 000 ml @ 130 mls/hr IV . Q7H42M [facility] Rx#:[id number] Intake, IV Titration 80.882 Amount Heparin Sod,Pork in 0.45% 80.882 NaCl 25,000 unit In 0.45 % NaCl 1 250ml.bag @ 5.73 UNITS/KG/HR 10.006 mls/ hr IV .Q24H [facility] Rx#: [id number] Output: Urine Other: Voiding Method Weight Unable to perform due to mental status, aggressive behavior Results CBC & Chem 7: 04/12/19 06:55 04/12/19 06:55 Labs: Abnormal Lab Results - Last 24 Hours (Table) 04/11/19 04/11/19 04/11/19 Range/Units 23:12 23:12 23:13 WBC 12.7 H (3.8-10.6) k/uL RBC (4.30-5.90) m/uL Hgb 11.9 L (13.0-17.5) gm/dL Hct 37.4 L (39.0-53.0) % RDW 16.2 H (11.5-15.5) % Neutrophils # 10.0 H (1.3-7.7) k/uL APTT (22.0-30.0) sec BUN 28 H (9-20) mg/dL Glucose 112 H (74-99) mg/dL POC Glucose (mg/dL) (75-99) mg/dL Calcium (8.4-10.2) mg/dL Total Protein (6.3-8.2) g/dL Albumin (3.5-5.0) g/dL Urine Protein 3+ H (Negative) Urine Blood Moderate H (Negative) Ur Leukocyte Esterase Large H (Negative) Urine RBC >182 H (0-5) /hpf Urine WBC 136 H (0-5) /hpf Urine WBC Clumps Rare H (None) /hpf Urine Bacteria Moderate H (None) /hpf Urine Mucus Rare H (None) /hpf 04/12/19 04/12/19 04/12/19 Range/Units 01:32 EST 06:55 06:55 WBC (3.8-10.6) k/uL RBC (4.30-5.90) m/uL Hgb (13.0-17.5) gm/dL Hct (39.0-53.0) % RDW (11.5-15.5) % Neutrophils # (1.3-7.7) k/uL APTT 40.3 H (22.0-30.0) sec BUN 26 H (9-20) mg/dL Glucose (74-99) mg/dL POC Glucose (mg/dL) 119 H (75-99) mg/dL Calcium 8.2 L (8.4-10.2) mg/dL Total Protein 5.9 L (6.3-8.2) g/dL Albumin 2.9 L (3.5-5.0) g/dL Urine Protein (Negative) Urine Blood (Negative) Ur Leukocyte Esterase (Negative) Urine RBC (0-5) /hpf Urine WBC (0-5) /hpf Urine WBC Clumps (None) /hpf Urine Bacteria (None) /hpf Urine Mucus (None) /hpf 04/12/19 Range/Units 06:55 WBC (3.8-10.6) k/uL RBC 4.00 L (4.30-5.90) m/uL Hgb 10.5 L (13.0-17.5) gm/dL Hct 33.9 L (39.0-53.0) % RDW 15.7 H (11.5-15.5) % Neutrophils # (1.3-7.7) k/uL APTT (22.0-30.0) sec BUN (9-20) mg/dL Glucose (74-99) mg/dL POC Glucose (mg/dL) (75-99) mg/dL Calcium (8.4-10.2) mg/dL Total Protein (6.3-8.2) g/dL Albumin (3.5-5.0) g/dL Urine Protein (Negative) Urine Blood (Negative) Ur Leukocyte Esterase (Negative) Urine RBC (0-5) /hpf Urine WBC (0-5) /hpf Urine WBC Clumps (None) /hpf Urine Bacteria (None) /hpf Urine Mucus (None) /hpf Microbiology - Last 24 Hours (Table) 04/11/19 23:54 Urine Culture - Preliminary Urine,Catheterized Thrombosis Risk Factor Assmnt - Choose All That Apply Each Factor Represents 1 point: Obesity (BMI >25) Each Risk Factor Represents 2 Points: Patient confined to bed Each Risk Factor Represents 3 Points: Age 75 years or older Thrombosis Risk Factor Assessment Total Risk Factor Score: 6 Thrombosis Risk Factor Assessment Level: High Risk Assessment and Plan Plan: 1. Metabolic encephalopathy secondary to dementia unable to determine baseline secondary to sepsis. Rocephin 1 g every 24 hours, awaiting urine and blood cultures, 0.9 normal saline at 75 mL per hour 2. Sepsis secondary to urinary tract infection. Renal ultrasound ordered, PSA ordered 3. Generalized debility. Continue with IV hydration, IV antibiotics. 4. New-onset proximal A. fib with RVR likely secondary to sepsis. May require outpatient coagulation if recurrent episodes. Cardiology consult appreciated, continue IV heparin, Cardizem discontinued at this time. Echocardiogram ordered Continue to monitor 5. Dementia. Unable to determine baseline 6. Hypertension. amiloride hydrochlorothiazide 5-50mg daily, 7. Hyperlipidemia. Atorvastatin 10 mg by mouth every 48 hours, aspirin 81 mg daily 8. GI prophylaxis Pepcid 20 mg IV twice a day 9. DVT prophylaxis. IV heparin CODE STATUS: No code Discharge plan: Patient to be admitted for minimum of 2 nights, return to extended care facility upon discharge Impression and plan of care have been directed as dictated by the signing physician. Alyssia Ferguson nurse practitioner acting as scribe for signing physician.
--- NOTE | 2019-04-12 12:10 | US ---
EXAMINATION TYPE: US renals and bladder DATE OF EXAM: 04/12/2019 COMPARISON: US 2016 CLINICAL HISTORY: hematuria. EXAM MEASUREMENTS: Right Kidney: 11.2 x 5.2 x 4.9 cm Left Kidney: not visualized Technically difficult study performed portably in ICU on a morbidly obese patient unable to cooperate . Right Kidney: No hydronephrosis or masses seen Left Kidney: unable to visualize. Bladder: not imaged, patient has catheter. IMPRESSION: SUBOPTIMAL EXAMINATION WITH FAILURE TO VISUALIZE THE LEFT KIDNEY.
[2019-04-12] MEDS: MELATONIN 3 MG TABLET PO SCH (21:28)
[2019-04-13 04:58] LABS: Basophils % (A) 1 %; Eosinophils # (A) 0.2 k/uL (0-0.7); Eosinophils % (A) 2 %; HCT 32.6 % (39.0-53.0); HGB 10.4 gm/dL (13.0-17.5); Hypochromasia Moderate; Lymphocytes # (A) 1.9 k/uL (1.0-4.8); Lymphocytes % (A) 21 %; MCH 26.8 pg (25.0-35.0); MCHC 31.9 g/dL (31.0-37.0); Mean Platelet Volume 6.5; Monocytes # (A) 0.6 k/uL (0-1.0); Monocytes % (A) 7 %; Neutrophils # (A) 6.1 k/uL (1.3-7.7); Neutrophils % (A) 66 %; Platelet Count 297 k/uL (150-450); RBC 3.88 m/uL (4.30-5.90); RDW 15.6 % (11.5-15.5); WBC 9.2 k/uL (3.8-10.6)
[2019-04-13] MEDS: aMILoride-HCTZ 5-50 mg 1 EACH TAB PO SCH (08:12)
[2019-04-13] MEDS: POLYETHYLENE GLYCOL 3350 17 GM POWD.PACK PO SCH (08:13)
[2019-04-13] MEDS: FAMOTIDINE 20 MG/2 ML VIAL IV SCH (08:13)
[2019-04-13] MEDS: METOPROLOL TARTRATE 50 MG TAB PO SCH (08:13)
[2019-04-13] MEDS: SODIUM CHLORIDE 0.9% 1,000 ML IV SCH (08:14)
[2019-04-13] MEDS: APIXABAN 2.5 MG TABLET PO SCH ×2 (12:05→19:46)
--- NOTE | 2019-04-13 13:52 | P.PN ---
Subjective Progress Note Date: 04/13/19 This is an 84-year-old gentleman who is a resident of an extended care facility. At the extended care facility patient was refusing his medications and has increased change of mental status including confusion. Patient was brought to the emergency room for evaluation due to generalized weakness, confusion, and fever. Patient has a history of dementia however the increased confusion and refusal to take medications or participating care is new to the patient. Patient has become easily agitated and unwilling to answer questions or be examined. Patient is not complaining of any pain or discomfort. Patient denies any urinary symptoms such as dysuria, material, frequency. Patient denies fever or chills. Upon arrival to the emergency room patient was found to be in atrial fibrillation with RVR this appears to be new for the patient may be correlated with urosepsis. Patient has significant past medical history of dementia, hyperlipidemia, hypertension, osteoarthritis. Patient is resident at [facility]. During examined changes patient became agitated and aggressive with examiner. Patient does not appear in any acute distress. Patient is not very communicative, does not give meaningful history. Chest x-ray shows some atelectasis at the lung bases increased compared to last exam with decreased inspiration. No heart failure seen. Upon arrival initial WBC 12.7 this morning 9.7, hemoglobin 10.5, potassium 3.9, BUN 26, creatinine 0.79, urinalysis positive for UTI. Patient afebrile at this time hemodynamically stable, heart rate 65 and appears regular, blood pressure 140/92 pulse ox 96% on room air. Urinary output is between 50 and 70 ML's per hour for underlying catheter. 04/13: Patient is seen in the intensive care unit. Patient is oriented to person only, pleasantly confused. He has been afebrile, heart rate 68, blood pressure 130/69, pulse ox 97% on 2 L nasal cannula. WBC is 9.2, hemoglobin 10.4, platelet count 297. paunch trimmer is a sinus rhythm. Patient remains on a heparin drip to be transitioned to eliquis. Echocardiogram report is pending. Occult stool positive this morning. He ate 50% of his meal for breakfast. Renal ultrasound is suboptimal examination. On the right kidney no hydronephrosis or masses seen. Left kidney unable to visualize. IV fluids changed to saline lock. Anticipate he will be transferred back to [facility] at the time of discharge. Social work is following. Review of Systems ROS unobtainable: due to mental status Objective - Vital Signs Vital signs: Vital Signs Temp 98.1 F 04/13/19 04:00 Pulse 79 04/13/19 08:00 Resp 16 04/13/19 08:00 BP 134/63 04/13/19 08:00 Pulse Ox 97 04/13/19 08:00 Intake & Output 04/12/19 04/13/19 04/13/19 18:59 06:59 18:59 Intake Total 717.363 0135.263 Output Total 250 550 180 Balance 730.882 516.263 -180 Weight 120.1 kg Intake: IV 900 900 Sodium Chloride 0.9% 1, 900 900 000 ml @ 75 mls/hr IV . [id number] KIM Rx#:[id number] Intake, IV Titration 80.882 166.263 Amount Heparin Sod,Pork in 0.45% 80.882 166.263 NaCl 25,000 unit In 0.45 % NaCl 1 250ml.bag @ 5.73 UNITS/KG/HR 10.006 mls/ hr IV .Q24H KIM Rx#: [id number] Output: Urine 250 550 180 Other: Voiding Method Indwelling Catheter Indwelling Catheter Indwelling Catheter # Bowel Movements 2 - Exam Gen: This is an 84-year-old male. He is resting in bed and appears to be comfortable and in no acute distress. No respiratory distress noted. HEENT: Head is atraumatic, normocephalic. Pupils equal, round. Sclerae is anicteric. NECK: Supple. No lymphadenopathy. No thyromegaly. LUNGS: Diminished bilaterally. No intercostal retractions. HEART: Regular rate and rhythm. Systolic murmur. ABDOMEN: Soft. Bowel sounds are present. No masses. No tenderness. Keys catheter in place EXTREMITIES: No pedal edema. No calf tenderness. NEUROLOGICAL: Patient is awake, alert and oriented to person only. Patient is pleasantly confused. - Labs CBC & Chem 7: 04/13/19 04:17 04/12/19 06:55 Labs: Abnormal Lab Results - Last 24 Hours (Table) 04/12/19 04/13/19 04/13/19 Range/Units 15:01 04:17 04:21 RBC 3.88 L (4.30-5.90) m/uL Hgb 10.4 L (13.0-17.5) gm/dL Hct 32.6 L (39.0-53.0) % RDW 15.6 H (11.5-15.5) % APTT 54.0 H 53.6 H (22.0-30.0) sec Microbiology - Last 24 Hours (Table) 04/11/19 23:54 Urine Culture - Preliminary Urine,Catheterized Gram Neg Bacilli 04/11/19 23:12 Blood Culture - Preliminary Blood No Growth after 24 hours Assessment and Plan Plan: 1. Metabolic encephalopathy secondary to dementia unable to determine baseline secondary to sepsis. Rocephin 1 g every 24 hours, awaiting urine and blood cultures, 0.9 normal saline at 75 mL per hour 2. Sepsis secondary to urinary tract infection. Renal ultrasound as above, PSA ordered 3. Generalized debility. Continue with IV hydration, IV antibiotics. 4. New-onset paroxysmal A. fib with RVR likely secondary to sepsis. Cardiology consult appreciated, continue metipranolol 50 mg daily, eliquis to start at 2.5 mg twice daily and discontinue heparin drip. Echocardiogram ordered . Continue to monitor 5. Dementia. Unable to determine baseline 6. Hypertension. amiloride hydrochlorothiazide 5-50mg daily, 7. Hyperlipidemia. Atorvastatin 10 mg by mouth every 48 hours, aspirin 81 mg daily 8. GI prophylaxis Pepcid 20 mg daily 9. DVT prophylaxis. Eliquis CODE STATUS: No code Discharge plan: Return to [facility] under the care of Dr. Dickey. Social work is following. Impression and plan of care have been directed as dictated by the signing physician. Annmarie White nurse practitioner acting as scribe for signing physician.
--- NOTE | 2019-04-13 14:28 | PN ---
PROGRESS NOTE This is an 84-year-old gentleman who was admitted to hospital with urosepsis, has dementia and developed atrial fibrillation in the hospital. He converted back to sinus rhythm and this morning remains in normal sinus rhythm. He had an echocardiogram, whose results are pending. On exam, heart rate is 68 beats per minute. Blood pressure is 130/69, respiratory rate is 18. Chest exam reveals good air entry bilaterally. Heart exam reveals first and second heart sounds. No gallop. Abdomen is soft. Exam of extremities did not reveal any edema. Peripheral pulses are felt. Lab show a hemoglobin of 10.4. Potassium is 3.9. Creatinine is 0.79. ASSESSMENT: 1. Paroxysmal atrial fibrillation. 2. Urosepsis. 3. Dementia. PLAN: I am going to start the patient on Eliquis 2.5 b.i.d. Continue rest of his medications including Moduretic, Lipitor and Lopressor. MMODL / IJN: [id number] /
[2019-04-13] MEDS: ASPIRIN 81 MG PO SCH (16:20)
[2019-04-13] MEDS: MELATONIN 3 MG TABLET PO SCH (19:46)
[2019-04-14 04:48] LABS: Basophils # (A) 0.1 k/uL (0-0.2); Basophils % (A) 1 %; Eosinophils # (A) 0.2 k/uL (0-0.7); Eosinophils % (A) 2 %; HCT 34.5 % (39.0-53.0); HGB 10.7 gm/dL (13.0-17.5); Hypochromasia Slight; Lymphocytes # (A) 1.6 k/uL (1.0-4.8); Lymphocytes % (A) 17 %; MCH 25.6 pg (25.0-35.0); MCV 82.5 fL (80.0-100.0); Mean Platelet Volume 6.3; Monocytes # (A) 0.6 k/uL (0-1.0); Monocytes % (A) 6 %; Neutrophils % (A) 72 %; Platelet Count 346 k/uL (150-450); RBC 4.19 m/uL (4.30-5.90); RDW 15.6 % (11.5-15.5); WBC 9.7 k/uL (3.8-10.6)
--- NOTE | 2019-04-14 09:00 | ECHOF ---
Referral Reason:A-fib MEASUREMENTS -------- HEIGHT: 152.4 cm WEIGHT: 119.7 kg BP: 134/63 RVIDd: 3.6 cm (< 3.3) IVSd: 1.4 cm (0.6 - 1.1) LVIDd: 4.3 cm (3.9 - 5.3) LVPWd: 1.4 cm (0.6 - 1.1) IVSs: 1.7 cm LVIDs: 3.3 cm LVPWs: 1.5 cm Ao Diam: 3.5 cm (2.0 - 3.7) AV Cusp: 1.1 cm (1.5 - 2.6) LA Diam: 4.4 cm (2.7 - 3.8) MV EXCURSION: 16.074 mm (> 18.000) MV EF SLOPE: 41 mm/s (70 - 150) EPSS: 1.9 cm MV E Christian: 0.45 m/s MV DecT: 202 ms MV A Christian: 0.75 m/s MV E/A Ratio: 0.60 AV maxP.38 mmHg AV meanP.64 mmHg FINDINGS -------- Undetermined rhythm. Morbid Obesity This was a techncally difficult study with suboptimal views, , Lumason utilized for enhancement of images. The left ventricular size is normal. There is mild concentric left ventricular hypertrophy. Overa ll left ventricular systolic function is low-normal with, an EF between 50 - 55 %. The right ventricle is mild to moderately enlarged. The left atrial size is normal. The right atrial size is normal. 5.0mg OF Lumason UTLIZED: 2 OR MORE WALL SEGMENTS NOT VISUALIZED. The aortic valve was not well visualized. There is mild aortic stenosis present. Peak/mean gradie nt across the Aortic Valve is 34.38mmHg / 19.64mmHg. Mild mitral annular calcification present. Mild mitral regurgitation is present. Unable to estimate RVSP due to inadequate TR jet spectral doppler profile. The pulmonic valve was not well visualized. Echo free space represents a pericardial fat pad. CONCLUSIONS -------- 1. Undetermined rhythm. 2. Morbid Obesity 3. This was a techncally difficult study with suboptimal views, , Lumason utilized for enhancement of images. 4. The left ventricular size is normal. 5. There is mild concentric left ventricular hypertrophy. 6. Overall left ventricular systolic function is low-normal with, an EF between 50 - 55 %. 7. The right ventricle is mild to moderately enlarged. 8. The left atrial size is normal. 9. The right atrial size is normal. 10. 5.0mg OF Lumason UTLIZED: 2 OR MORE WALL SEGMENTS NOT VISUALIZED. 11. The aortic valve was not well visualized. 12. There is mild aortic stenosis present. 13. Peak/mean gradient across the Aortic Valve is 34.38mmHg / 19.64mmHg. 14. Mild mitral annular calcification present. 15. Mild mitral regurgitation is present. 16. Unable to estimate RVSP due to inadequate TR jet spectral doppler profile. 17. The pulmonic valve was not well visualized. 18. Echo free space represents a pericardial fat pad. STABLE ATTENDANT: Brittni Bynum RDCS
[2019-04-14] MEDS: aMILoride-HCTZ 5-50 mg 1 EACH TAB PO SCH (09:03)
[2019-04-14] MEDS: ATORVASTATIN 10 MG TAB PO SCH (09:03)
[2019-04-14] MEDS: METOPROLOL TARTRATE 50 MG TAB PO SCH (09:03)
[2019-04-14] MEDS: POLYETHYLENE GLYCOL 3350 17 GM POWD.PACK PO SCH (09:03)
[2019-04-14] MEDS: FAMOTIDINE 20 MG/2 ML VIAL IV SCH (09:03)
[2019-04-14] MEDS: amLODIPine 5 MG TAB PO SCH (09:03)
[2019-04-14] MEDS: APIXABAN 2.5 MG TABLET PO SCH ×2 (09:03→20:28)
--- NOTE | 2019-04-14 09:44 | PN ---
PROGRESS NOTE This 84-year-old gentleman was admitted to the hospital with urosepsis, has dementia and developed atrial fibrillation. I started him on Eliquis yesterday. Heart rate is well controlled. On exam today, he is comfortable at rest. Heart rate is 90 beats per minute. Blood pressure is 148/85, respiratory rate is 18. Chest exam reveals good air entry bilaterally. Heart exam reveals first and second heart sounds, irregular rhythm and a systolic murmur at the apex. Abdomen is soft. Exam of the extremities reveals mild edema. Peripheral pulses are felt. The patient is on Moduretic, Eliquis 2.5 b.i.d., Lipitor, Pepcid, Lopressor 50 mg. I am adding amlodipine 5 mg daily for better blood pressure control. ASSESSMENT: 1. Persistent atrial fibrillation with controlled ventricular rate. 2. Dementia. 3. Urosepsis. PLAN: Patient is doing well. He will continue with his current medications. Hopefully home in the next 24 to 48 hours. MMODL / IJN: [id number] /
--- NOTE | 2019-04-14 12:07 | CDI ---
Documentation Clarification Form Date: 04/14/2019 11:56:21 AM From: Ariana Del RioHunt CCS, CCDS Admit Date: 04/12/2019 12:16:00 AM Patient Name: Jam Torres Visit Number: [id number] Discharge Date: ATTENTION: The Clinical Documentation Specialists (CDI) and [facility] Coding Staff appreciate your assistance in clarifying documentation. Please respond to the clarification below the line at the bottom and electronically sign. The CDI & [facility] Coding staff will review the response and follow-up if needed. Please note: Queries are made part of the Legal Health Record. If you have any questions, please contact the author of this message via ITS. Dr. Augustina Theodore or Dr. Cam Rasheed: Per the ED note: "Skin exam: Present: warm, dry, normal color, other (Sacral decubitus ulcer present)." Patient history/risk factors: Dementia, from [facility]. Atiral fibrillation, Hyperlipidemia, Hypertension, Osteoarthritis. Former smoker. Clinical Indicators: From senior living with altered mental status, weakness. Diagnosed with Sepsis, UTI, Metabolic encephalopathy & Paroxysmal Atrial fibrillation. Labs: WBC 12.7^, Hgb 11.9*, Neut 10.0^, BUN 28^, Glucose 112^. UA: Light red, turbid, 3+ protein, moderate blood, large esterase, RBC >182, WBC 136. Wound assessment: No wound assessment. Treatment: IV fluid bolus, IV Rocephin, IV Ms, IV Heparin drip, IV fluid rate 75, IV Cardizem. In your professional opinion, can the etiology and severity of the wound be further specified as one of the following? Decubitus Sacral Ulcer o Stage I o Stage II o Stage III o Stage IV o Unstageable o Unable to determine stage Decubitus ulcer ruled out Other, Please specify Unable to determine (Last Revision: March 2017) no decub. MTDD
[2019-04-14] MEDS: ASPIRIN 81 MG PO SCH (16:12)
[2019-04-14] MEDS: TAMSULOSIN 0.4 MG CAP.ER.24H PO SCH (16:12)
[2019-04-14] MEDS: MELATONIN 3 MG TABLET PO SCH (20:28)
[2019-04-15 04:57] LABS: Basophils # (A) 0.1 k/uL (0-0.2); Basophils % (A) 1 %; Eosinophils # (A) 0.1 k/uL (0-0.7); Eosinophils % (A) 2 %; HCT 33.9 % (39.0-53.0); Hypochromasia Slight; Lymphocytes # (A) 1.8 k/uL (1.0-4.8); Lymphocytes % (A) 19 %; MCH 26.5 pg (25.0-35.0); MCHC 32.3 g/dL (31.0-37.0); MCV 81.9 fL (80.0-100.0); Mean Platelet Volume 6.2; Monocytes # (A) 0.5 k/uL (0-1.0); Monocytes % (A) 6 %; Neutrophils # (A) 6.3 k/uL (1.3-7.7); Neutrophils % (A) 70 %; Platelet Count 331 k/uL (150-450); RBC 4.14 m/uL (4.30-5.90); RDW 15.5 % (11.5-15.5); WBC 9.1 k/uL (3.8-10.6)
[2019-04-15 05:09] LABS: ALT 46 U/L (21-72); AST 37 U/L (17-59); African American GFR (CKD) >90 (>60 ml/min/1.73 sqM); Albumin 3.2 g/dL (3.5-5.0); Alkaline Phosphatase 105 U/L (38-126); Anion Gap 6 mmol/L; Blood Urea Nitrogen 15 mg/dL (9-20); Calcium 8.9 mg/dL (8.4-10.2); Carbon Dioxide 29 mmol/L (22-30); Chloride 101 mmol/L (98-107); Glucose 104 mg/dL (74-99); Potassium 3.4 mmol/L (3.5-5.1); Sodium 136 mmol/L (137-145); Total Bilirubin 0.2 mg/dL (0.2-1.3); Total Protein 6.4 g/dL (6.3-8.2)
[2019-04-15] MEDS ORDERED: Potassium Replacement Protocol 1 EACH MISC MISCELLANE PRN (08:17)
[2019-04-15] MEDS ORDERED: POTASSIUM CHLORIDE ER 20 MEQ TAB.ER PO SCH (09:00)
[2019-04-15] MEDS: APIXABAN 2.5 MG TABLET PO SCH (09:53)
[2019-04-15] MEDS: POLYETHYLENE GLYCOL 3350 17 GM POWD.PACK PO SCH (09:53)
[2019-04-15] MEDS: FAMOTIDINE 20 MG/2 ML VIAL IV SCH (09:54)
[2019-04-15] MEDS: aMILoride-HCTZ 5-50 mg 1 EACH TAB PO SCH (09:54)
[2019-04-15] MEDS: amLODIPine 5 MG TAB PO SCH (09:54)
[2019-04-15] MEDS: METOPROLOL TARTRATE 50 MG TAB PO SCH (09:54)
[2019-04-15] MEDS: TAMSULOSIN 0.4 MG CAP.ER.24H PO SCH (09:54)
[2019-04-15 13:21] VITALS: BP 136/72; PULSE 77; RESP 15; TEMP 98.1
--- NOTE | 2019-04-15 13:29 | PN ---
PROGRESS NOTE Jam is an 84-year-old gentleman who was admitted to hospital with urosepsis and atrial fibrillation. This morning he is doing well. Heart rate is 84 beats per minute. Blood pressure is 117/78. Respiratory rate is 18. Chest exam reveals diminished air entry at the bases. Heart exam reveals first and second heart sounds, irregular rhythm and a systolic murmur at the left lower sternal border. Examination of extremities reveals mild edema. LABS: Labs show a potassium of 3.4, creatinine is 0.7, hemoglobin is 11. The patient is currently on Norvasc, Eliquis 2.5 b.i.d. aspirin, Lipitor, Lopressor. ASSESSMENT: Persistent atrial fibrillation. PLAN: Patient is doing well. Continue current medications. He is stable for discharge. MMODL / IJN: [id number] /
--- NOTE | 2019-04-15 14:05 | P.DS ---
Providers Date of admission: 04/12/19 00:16 Attending physician: Augustina Theodore MD Consults: 04/12/19 00:57 Consult Physician Stat Consulting Provider: Farhan Israel Consult Reason/Comments: new onset atrial fibrillation Do you want consulting provider notified?: Yes Primary care physician: Amauri Dickey [facility] Course: Principal diagnosis: Change mental status, encephalopathy, sepsis, urinary tract infection, new onset of paroxysmal A. fib, dementia and debility This is an 84-year-old gentleman who is a resident of an extended care facility. At the [facility] patient was refusing his medications and has increased change of mental status including confusion. Patient was brought to the emergency room for evaluation due to generalized weakness, confusion, and fever. Patient has a history of dementia however the increased confusion and refusal to take medications or participating care is new to the patient. Patient has become easily agitated and unwilling to answer questions or be examined. Patient is not complaining of any pain or discomfort. Patient denies any urinary symptoms such as dysuria, material, frequency. Patient denies fever or chills. Upon arrival to the emergency room patient was found to be in atrial fibrillation with RVR this appears to be new for the patient may be correlated with urosepsis. Patient has significant past medical history of dementia, hyperlipidemia, hypertension, osteoarthritis. Patient is resident at [facility]. During examined changes patient became agitated and aggressive with examiner. Patient does not appear in any acute distress. Patient is not very communicative, does not give meaningful history. Chest x-ray shows some atelectasis at the lung bases increased compared to last exam with decreased inspiration. No heart failure seen. Upon arrival initial WBC 12.7 this morning 9.7, hemoglobin 10.5, potassium 3.9, BUN 26, creatinine 0.79, urinalysis positive for UTI. Patient afebrile at this time hemodynamically stable, heart rate 65 and appears regular, blood pressure 140/92 pulse ox 96% on room air. Urinary output is between 50 and 70 ML's per hour for underlying catheter. 04/13: Patient is seen in the intensive care unit. Patient is oriented to person only, pleasantly confused. He has been afebrile, heart rate 68, blood pressure 130/69, pulse ox 97% on 2 L nasal cannula. WBC is 9.2, hemoglobin 10.4, platelet count 297. nuclear monitoring technician is a sinus rhythm. Patient remains on a heparin drip to be transitioned to eliquis. Echocardiogram report is pending. Occult stool positive this morning. He ate 50% of his meal for breakfast. Renal ultrasound is suboptimal examination. On the right kidney no hydronephrosis or masses seen. Left kidney unable to visualize. IV fluids changed to saline lock. Anticipate he will be transferred back to [facility] at the time of discharge. Social work is following. 04/14: Patient is doing much better is more clear today his encephalopathy has improved some, successfully manage his A. fib with pulse rates under control currently. Patient still have Keys catheter and which will be removed today start patient on tamsulosin, his urine culture came back positive for Proteus mirabilis which will be switched to Ceftin when he goes to [facility] and the plan probably to go to [facility] tomorrow the stable. Objective - Vital Signs Vital signs: Vital Signs Temp 97.9 F 04/14/19 20:00 Pulse 94 04/14/19 20:00 Resp 14 04/14/19 20:00 BP 128/91 04/14/19 20:00 Pulse Ox 92 L 04/14/19 20:00 Intake & Output 04/14/19 04/14/19 04/15/19 06:59 18:59 06:59 Intake Total 400 Output Total 275 1350 Balance -275 -950 Weight 118.3 kg Intake: Oral 400 Output: Urine 275 1350 Other: Voiding Method Indwelling Catheter Indwelling Catheter Indwelling Catheter - Exam CONSTITUTIONAL: Morbidly obese no acute respiratory distress. EYES: No icterus sclerae, no conjunctivitis. EARS, NOSE, MOUTH, THROAT, and FACE: No sore throat, lymphadenopathy, carotid bruits or deformity. RESPIRATORY: Significant shortness of breath no cough wheezes. CARDIOVASCULAR: Positive palpitation with orthopnea, PND, Orthopnea, or angina. GASTROINTESTINAL: No Abd pain, Nausea or vomiting, no Diarrhea or constipation, No GI Bleed, no distention or masses. GENITOURINARY: Positive UTI with fully catheter. INTEGUMENT/BREAST: Negative for any muscular injury with mild osteoarthritis.. HEMATOLOGIC/LYMPHATIC: Negative for bleed or purpura. MUSCULOSKELTAL: Generalized muscle and joint pain. NEURLOGICAL: No LOC, Sz or syncope, blurred vision dizziness or abnormality.. BEHAVIORAL/PSYCH: Negative. ENDOCRINE: Negative. General Appearance: Alert, cooperative, no distress, appears stated age, with obesity.. Neck HEENT: Supple, no lymphadenopathy, no thyroid enlargement, no carotid bruits. Lungs: Clear to auscultation without crackles or wheezes no rhonchi, no deformity. Chest Wall: Decrease expansion with deep inspiration no tenderness and no deformity was found on exam, no costochondral pain or discomfort. Heart: Irregular rate and rhythm, S1, S2 normal, no murmur, rub or gallop. Back: Symmetric, no curvature, ROM normal, no CVA tenderness. Abdomen: Soft, non-tender, bowel sounds active mild swelling with no focalized tenderness. Extremities: 1+ edema decreased pulse bilaterally with slight bruise on lower part of the leg. Pulses: 2+ and symmetric. Skin: Skin color, texture, tugor normal, no rashes or lesions. Neurologic: Alert quite bit confused moving all his 4 extremity has generalized weakness no focal deficit not been able template to walk not been able to do gait exam - Labs CBC & Chem 7: 04/15/19 04:21 04/15/19 04:21 Labs: Abnormal Lab Results - Last 24 Hours (Table) 04/12/19 04/14/19 Range/Units 06:55 04:14 RBC 4.19 L (4.30-5.90) m/uL Hgb 10.7 L (13.0-17.5) gm/dL Hct 34.5 L (39.0-53.0) % RDW 15.6 H (11.5-15.5) % Total PSA 7.1 H (<=4.0) ng/mL Microbiology - Last 24 Hours (Table) 04/11/19 23:54 Urine Culture - Final Urine,Catheterized Proteus mirabilis 04/11/19 23:12 Blood Culture - Preliminary Blood No Growth after 48 hours Assessment and Plan Plan: 1. Metabolic encephalopathy: Much better so far since treating the UTI is still having baseline dementia but has improved since his infection is better. 2. Sepsis secondary to urinary tract infection. Culture came back positive for Proteus mirabilis patient is still on Rocephin will be switched to Ceftin when he goes to [facility] to complete total of 10 more days. 3. Generalized debility. Continue with IV hydration, IV antibiotics. 4. New-onset paroxysmal A. fib with RVR likely secondary to sepsis. Cardiology consult appreciated, continue metipranolol 50 mg daily, eliquis to start at 2.5 mg twice daily 5. Dementia. Unable to determine baseline 6. Hypertension. amiloride hydrochlorothiazide 5-50mg daily, 7. Hyperlipidemia. Atorvastatin 10 mg by mouth every 48 hours, aspirin 81 mg daily 8. GI prophylaxis Pepcid 20 mg daily 9. DVT prophylaxis. Eliquis 10 urinary retention: Will remove Keys catheter keep patient on Flomax. Patient did very well catheter was removed is able to void and is on still having mild incontinence, infection is much better controlled continue Ceftin for 10 days, patient A. fib as a pulse rates under control and he is on anticoagulation with no side effects so far. Patient be sent back to [facility] Patient Condition at Discharge: Poor Plan - Discharge Summary Discharge Rx Participant: Yes New Discharge Prescriptions: New Cefuroxime [Ceftin] 250 mg PO BID #20 tab Apixaban [Eliquis] 2.5 mg PO BID tablet Tamsulosin [Flomax] 0.4 mg PO PC-BRKFST #0 cap.er.24h amLODIPine [Norvasc] 5 mg PO DAILY tab Continue Metoprolol Tartrate [Lopressor] 50 mg PO DAILY@0800 Atorvastatin [Lipitor] 10 mg PO Q48H aMILoride-HCTZ 5-50 mg [Moduretic 5-50] 1 tab PO DAILY@0800 Vitamin B Complex 1 cap PO DAILY@1700 Hydrocortisone Cream [Hydrocortisone 2.5% Cream] 1 applic TOPICAL Q12H PRN PRN Reason: Rash Na Phos,M-B/Na Phos,Di-Ba [Fleet Adult] 133 ml RECTAL ONCE PRN PRN Reason: Constipation Dextran 70/Hypromellose [Genteal Tears 0.1%-0.3% Drop] 2 drops BOTH EYES Q8H PRN PRN Reason: DRY/ITCHY EYES Bisacodyl [Dulcolax] 10 mg RECTAL DAILY PRN PRN Reason: Constipation Acetaminophen [Tylenol] 650 mg PO Q4H PRN PRN Reason: Pain Selsun Bluedry Scalp Shampoo 1 applic TOPICAL MOTH Polyethylene Glycol 3350 [Miralax] 17 gm PO DAILY@0800 Melatonin 3 mg PO HS@2100 Ergocalciferol (Vitamin D2) [Drisdol] 50,000 unit PO Q14D@1700 Aspirin 81 mg PO DAILY@1700 Magnesium Hydroxide [Milk of Magnesia Concentrate] 7,200 mg PO DAILY PRN PRN Reason: Constipation Discharge Medication List Atorvastatin [Lipitor] 10 mg PO Q48H 12/29/15 [History] Metoprolol Tartrate [Lopressor] 50 mg PO DAILY@0800 12/29/15 [History] aMILoride-HCTZ 5-50 mg [Moduretic 5-50] 1 tab PO DAILY@0800 12/29/15 [History] Vitamin B Complex 1 cap PO DAILY@1700 07/20/16 [History] Acetaminophen [Tylenol] 650 mg PO Q4H PRN 04/11/19 [History] Aspirin 81 mg PO DAILY@1700 04/11/19 [History] Bisacodyl [Dulcolax] 10 mg RECTAL DAILY PRN 04/11/19 [History] Dextran 70/Hypromellose [Genteal Tears 0.1%-0.3% Drop] 2 drops BOTH EYES Q8H PRN 04/11/19 [History] Ergocalciferol (Vitamin D2) [Drisdol] 50,000 unit PO Q14D@1700 04/11/19 [History] Hydrocortisone Cream [Hydrocortisone 2.5% Cream] 1 applic TOPICAL Q12H PRN 04/11/19 [History] Magnesium Hydroxide [Milk of Magnesia Concentrate] 7,200 mg PO DAILY PRN 04/11/19 [History] Melatonin 3 mg PO HS@2100 04/11/19 [History] Na Phos,M-B/Na Phos,Di-Ba [Fleet Adult] 133 ml RECTAL ONCE PRN 04/11/19 [His tory] Polyethylene Glycol 3350 [Miralax] 17 gm PO DAILY@0800 04/11/19 [History] Selsun Bluedry Scalp Shampoo 1 applic TOPICAL MOTH 04/11/19 [History] Apixaban [Eliquis] 2.5 mg PO BID tablet 04/15/19 [Rx] Cefuroxime [Ceftin] 250 mg PO BID #20 tab 04/15/19 [Rx] Tamsulosin [Flomax] 0.4 mg PO PC-BRKFST #0 cap.er.24h 04/15/19 [Rx] amLODIPine [Norvasc] 5 mg PO DAILY tab 04/15/19 [Rx] Follow up Appointment(s)/Referral(s): Amauri Dickey MD [Primary Care Provider] - 1-2 days Discharge Disposition: TRANSFER TO SNF/ECF
[2019-04-16] MEDS ORDERED: FAMOTIDINE 20 MG TAB PO SCH (09:00)
== END 2019-04-15 14:09 | DRG 871 ==
LOC: EC 22:44 → UNDOADMOB 04-12 00:16 → 2SICU 04-12 00:16 → 4SSUR 04-12 00:16
PROVIDERS: ADMIT Internal Medicine; ATTEND Internal Medicine
DX: A41.9 Sepsis, unspecified organism (principal); G93.41 Metabolic encephalopathy; I48.19 Other persistent atrial fibrillation; N39.0 Urinary tract infection, site not specified; E78.5 Hyperlipidemia, unspecified; F03.90 Unspecified dementia, unspecified severity, without behavioral disturbance, psychotic disturbance, mood disturbance, and anxiety; I10 Essential (primary) hypertension; R32 Unspecified urinary incontinence; Z79.01 Long term (current) use of anticoagulants; Z79.82 Long term (current) use of aspirin; Z79.899 Other long term (current) drug therapy; Z96.641 Presence of right artificial hip joint
CPT/HCPCS: 36415; 51701; 71045; 76770; 80053; 81001; 82272; 83605; 83735; 84153; 84154; 84484; 85025; 85610; 85730; 87040; 87077; 87086; 87186; 93005; 93306; 96361; 96365; 96367; 96368; 96375; 96376; 99291